=== PATIENT | male | born 1945 | race African-American/Black ===

== ENCOUNTER 2022-06-18 17:19 | Observation (INO) | payer MEDICARE ==
[~2022-06-18] VITALS: Ht 170.2 cm; Wt 95.2 kg
[2022-06-18 18:02] LABS: COLLECTION METHOD CLEAN CATCH
[2022-06-18 18:10] LABS: URINE APPEARANCE Clear (CLEAR/HAZY); URINE BLOOD Negative (NEGATIVE); URINE COLOR Yellow (YELLOW); URINE GLUCOSE Negative (NEGATIVE); URINE KETONE Negative (NEGATIVE); URINE NITRATE Negative (NEGATIVE); URINE PROTEIN(semi-quant) Negative (NEGATIVE); URINE UROBILINOGEN 0.2 E.U/dL (0.2-1.0)
[2022-06-18 18:12] LABS: SQUAMOUS EPITHELIAL None Seen /hpf (0-10); URINE BACTERIA None Seen /hpf (NONE SEEN); URINE RBC 0-2 /hpf (0-2)
[2022-06-18 18:19] LABS: BASO % 0.2 % (0.0-2.0); EOS # 0.1 K/mm3 (0.0-0.7); EOS % 1.1 % (0.0-4.0); GRAN # 2.9 K/mm3 (1.4-6.5); GRAN % 53.9 % (42.2-75.2); HEMATOCRIT 41.4 % (42.0-52.0); HEMOGLOBIN 13.9 g/dl (13.5-18.0); LYMPH # 1.4 K/mm3 (1.2-3.4); LYMPH % 26.7 % (20.0-51.0); MEAN CELL VOLUME 90 fl (80.0-100.0); MEAN CORPUSCULAR HEMOGLOBIN 30 pg (27-31); MEAN CORPUSCULAR HGB CONC 34 g/dl (33.0-37.0); MEAN PLATELET VOLUME 10.9 fl (7.4-10.4); MONO # 0.9 K/mm3 (0.1-0.6); MONO % 17.2 % (1.7-9.3); PLATELET COUNT 127 K/mm3 (130-400); RED BLOOD COUNT 4.58 M/mm3 (4.20-5.60); REDCELL DISTRIBUTION WIDTH-CV 14.3 % (11.5-14.5)
[2022-06-18 19:33] LABS: ALBUMIN 3.3 gm/dL (3.4-4.8); BILIRUBIN,TOTAL 0.7 mg/dL (0.2-1.2); CALCIUM 8.8 mg/dL (8.4-10.2); CREATININE, serum 1.89 mg/dL (0.72-1.25); POTASSIUM 4.9 mmol/L (3.5-4.5); TOTAL PROTEIN 6.7 gm/dL (6.2-8.1)
[2022-06-18 19:42] LABS: TROPONIN-I 0.087 ng/mL (0.00-0.033)
[2022-06-18] MEDS ORDERED: COZAAR100 MG PO (21:01)
[2022-06-18] MEDS ORDERED: MEVACOR 20M20 MG/TAB PO (21:02)
[2022-06-18] MEDS ORDERED: LOPRESSOR100 MG PO (21:03)
[2022-06-18] MEDS ORDERED: ACTOS30 MG PO (21:04)
[2022-06-18] MEDS ORDERED: CARDURA 8MG TAB8 MG PO (21:04)
[2022-06-18] MEDS ORDERED: NORVASC 10MG10 MG PO (21:04)
[2022-06-18] MEDS ORDERED: ASPIRIN 32325 MG/TAB PO (21:05)
[2022-06-18 22:34] VITALS: BP 127/66; PULSE 64; TEMP 98.5
--- NOTE | 2022-06-19 01:27 | NUR ---
PATIENT ARRIVED TO 310 AT 2200. PATIENT ALERT AND ORIENTATED X4. ORIENTATED TO MEDICAL FLOOR. DENIES NEEDS. CALL LIGHT IN REACH.
[2022-06-19 04:06] VITALS: BP 116/70; PULSE 58; TEMP 98.3
--- NOTE | 2022-06-19 05:53 | NUR ---
PATIENT HAD UNEVENTFUL NIGHT. RESTING IN BED THIS AM. CALL LIGHT IN REACH.
--- NOTE | 2022-06-19 06:50 | NUR ---
resting in bed, bedside shift report received from ANSHU Benjamin
--- NOTE | 2022-06-19 06:58 | NUR ---
Report given to ANSHU Headley
[2022-06-19 07:07] VITALS: BP 121/74; PULSE 63; TEMP 98.2
[2022-06-19 07:12] LABS: CREATININE, serum 1.69 mg/dL (0.72-1.25); MAGNESIUM 2.2 mg/dL (1.6-2.6)
[2022-06-19 07:19] LABS: BASO % 0.2 % (0.0-2.0); EOS # 0.1 K/mm3 (0.0-0.7); GRAN % 43.4 % (42.2-75.2); HEMATOCRIT 45.1 % (42.0-52.0); HEMOGLOBIN 14.9 g/dl (13.5-18.0); LYMPH # 1.8 K/mm3 (1.2-3.4); LYMPH % 39.7 % (20.0-51.0); MEAN CELL VOLUME 91 fl (80.0-100.0); MEAN CORPUSCULAR HEMOGLOBIN 30 pg (27-31); MEAN CORPUSCULAR HGB CONC 33 g/dl (33.0-37.0); MEAN PLATELET VOLUME 11.4 fl (7.4-10.4); MONO # 0.7 K/mm3 (0.1-0.6); MONO % 14.3 % (1.7-9.3); PLATELET COUNT 127 K/mm3 (130-400); RED BLOOD COUNT 4.95 M/mm3 (4.20-5.60); REDCELL DISTRIBUTION WIDTH-CV 14.5 % (11.5-14.5)
--- NOTE | 2022-06-19 08:00 | NUR ---
awake resting in bed, full assessment completed, see interventions for further info, denies pain or needs
--- NOTE | 2022-06-19 09:06 | NUR ---
Dr Flores and care team in to see patient
--- NOTE | 2022-06-19 09:28 | NUR ---
offered breakfast and he refused, stating he isn't hungry and is hoping to go home
--- NOTE | 2022-06-19 10:06 | NUR ---
Initial visit; Loss Prevention And Safety Manager introduced herself and helped patient get settled in bed by fixing his pillows and lowering the back of the bed. Patient thanked Loss Prevention And Safety Manager and asked that she contact his nurse to take him to the restroom Loss Prevention And Safety Manager offered God's blessings and retrieved a nurse to help Mr. Novak.
--- NOTE | 2022-06-19 10:30 | NUR ---
in bed and appears to be dozing, eyes closed, resp quiet and easy
--- NOTE | 2022-06-19 11:31 | NUR ---
family at bedside, asking about his blood sugar and if he had breakfast, explained to them he was offered breakfast and even just some toast and he refused, they were not surprised by this, talked with patient about importance of eating and nutritious meals, will place order for dietary consult,, family in agreement with this
[2022-06-19 11:48] VITALS: BP 129/66; PULSE 62; TEMP 97.6
--- NOTE | 2022-06-19 12:32 | NUR ---
Dr Lozano in to see patient, will plan lexiscan tomorrow
--- NOTE | 2022-06-19 12:56 | NUR ---
Portal Administrator met with patient to discuss discharge planning. Patient lives in [place] with his , Safia and sees Dr. Sánchez for primary care. Patient obtains medications from [facility] and does not use any DME. Patient is independent with ADLS and stated he needs to get home to cut the grass. Patient does not have Advance Directives. Patient plans to return home at time of discharge. Discharge Plan: Home
--- NOTE | 2022-06-19 13:22 | NUR ---
eating lunch even though he states he isn't hungry, discussed that he needs to try and eat
--- NOTE | 2022-06-19 15:20 | NUR ---
appears to be sleeping, in bed with eyes closed, resp q uiet and easy
[2022-06-19 15:35] VITALS: BP 115/70; PULSE 67; TEMP 98.9
--- NOTE | 2022-06-19 18:46 | NUR ---
bedside shift report given to ANSHU Pacheco
[2022-06-19 20:26] VITALS: BP 131/74; PULSE 69; TEMP 98.2
[2022-06-19 23:57] VITALS: BP 115/71; PULSE 59; TEMP 98.8
[2022-06-20] VITALS (359 sets, daily range): BP systolic 94–135; BP diastolic 67–78; PULSE 56–75; TEMP 97.6–99.3; O2SAT 74–100
[2022-06-20 06:33] LABS: BASO % 0.3 % (0.0-2.0); EOS # 0.1 K/mm3 (0.0-0.7); EOS % 3.4 % (0.0-4.0); GRAN # 1.5 K/mm3 (1.4-6.5); GRAN % 37.3 % (42.2-75.2); HEMATOCRIT 42.8 % (42.0-52.0); HEMOGLOBIN 13.6 g/dl (13.5-18.0); LYMPH # 1.7 K/mm3 (1.2-3.4); LYMPH % 43.3 % (20.0-51.0); MEAN CELL VOLUME 94 fl (80.0-100.0); MEAN CORPUSCULAR HEMOGLOBIN 30 pg (27-31); MEAN CORPUSCULAR HGB CONC 32 g/dl (33.0-37.0); MEAN PLATELET VOLUME 10.9 fl (7.4-10.4); MONO # 0.6 K/mm3 (0.1-0.6); MONO % 14.9 % (1.7-9.3); PLATELET COUNT 118 K/mm3 (130-400); RED BLOOD COUNT 4.55 M/mm3 (4.20-5.60); REDCELL DISTRIBUTION WIDTH-CV 14.6 % (11.5-14.5)
[2022-06-20 06:56] LABS: CALCIUM 8.5 mg/dL (8.4-10.2); CREATININE, serum 1.47 mg/dL (0.72-1.25); PHOSPHOROUS 2.8 mg/dL (2.3-4.7)
--- NOTE | 2022-06-20 11:07 | NUR ---
Patient is resting in bed, alert and oriented x 4, VSS, Telemetry in place, NSR. Getting D5/NS AT 100ML/HR. Waiting for lexiscan. Being NPO from midnight. Assessment completed. Call light within reach.
[2022-06-20] MEDS ORDERED: LIPITOR 40MG TA40 MG PO (14:08)
--- NOTE | 2022-06-20 16:16 | NUR ---
Patient was taken by bed for cath procedure.
--- NOTE | 2022-06-20 16:30 | NUR ---
See merge for all medication, assessment, intervention, vital signs times.
--- NOTE | 2022-06-20 17:18 | NUR ---
Reported by charge nurse that pt will be transfered to ICU. Report given to WATERPROOFER.
--- NOTE | 2022-06-20 18:00 | NUR ---
Arrived from the computer lab para professional; attached to all monitors. Alert and oriented and in no distress upon arrival. Right radial site assessed; soft with no hematoma formation.
--- NOTE | 2022-06-20 21:11 | NUR ---
ASSESSMENT COMPLETE. PATIENT DENIES NEEDS. CALL LIGHT IN REACH.
[2022-06-21] VITALS (600 sets, daily range): BP systolic 117–132; BP diastolic 70–79; PULSE 57–72; TEMP 98.5–99.1; O2SAT 89–100
[2022-06-21 05:34] LABS: BASO % 0.2 % (0.0-2.0); EOS # 0.1 K/mm3 (0.0-0.7); EOS % 3.2 % (0.0-4.0); GRAN # 1.9 K/mm3 (1.4-6.5); HEMATOCRIT 43.1 % (42.0-52.0); HEMOGLOBIN 14.2 g/dl (13.5-18.0); LYMPH # 1.8 K/mm3 (1.2-3.4); MEAN CELL VOLUME 90 fl (80.0-100.0); MEAN CORPUSCULAR HEMOGLOBIN 30 pg (27-31); MEAN CORPUSCULAR HGB CONC 33 g/dl (33.0-37.0); MEAN PLATELET VOLUME 10.6 fl (7.4-10.4); MONO # 0.5 K/mm3 (0.1-0.6); MONO % 12.1 % (1.7-9.3); PLATELET COUNT 131 K/mm3 (130-400); RED BLOOD COUNT 4.81 M/mm3 (4.20-5.60); REDCELL DISTRIBUTION WIDTH-CV 14.2 % (11.5-14.5)
--- NOTE | 2022-06-21 05:39 | NUR ---
PATIENT HAD AN UNEVENTFUL NIGHT. RESTING IN BED THIS AM. CALL LIGHT IN REACH.
[2022-06-21 05:49] LABS: ALBUMIN 3.3 gm/dL (3.4-4.8); CALCIUM 8.9 mg/dL (8.4-10.2); CREATININE, serum 1.44 mg/dL (0.72-1.25); MAGNESIUM 1.8 mg/dL (1.6-2.6); POTASSIUM 4.6 mmol/L (3.5-4.5)
--- NOTE | 2022-06-21 07:18 | NUR ---
Report given to ANSHU Kaufman
[2022-06-21] MEDS ORDERED: BRILINTA90 MG PO (10:04)
--- NOTE | 2022-06-21 10:04 | NUR ---
Initial visit; Patient and his daughter thanked Paint Dipper for looking in on Ray and offering God's blessings for a rapid and thorough healing. Patient appears to be doing well, Paint Dipper left him smiling.
[2022-06-21] MEDS ORDERED: ASPIRIN 81M81 MG/TA2 PO (10:05)
[2022-06-21] MEDS ORDERED: IMDUR 30MG30 MG/TAB PO (10:05)
[2022-06-21] MEDS ORDERED: NITROSTAT0.4 MG/TAB SL (10:06)
--- NOTE | 2022-06-21 11:40 | NUR ---
Reviewed discharge instructions for radial heart catheterization. Cleaning site with mild soap and water, pat dry. Discussed monitoring for redness, hot to touch, inflammation, or temperature >100.4. Discussed when to contact the physician for signs of symptoms of complications or CO. Also reviewed risk factors for heart disease. Covered applicable modifiable risk factors including the following: tobacco cessation, HTN, hyperlipidemia, diabetes, overweight/obesity, sedentary lifestyle, and stress/depression. Patient verbalized understanding. Referral sent to [facility] with patient s permission. 10 MINUTES OF FACE TO FACE EDUCATION, 5 MINUTES OF CHART REVIEW SPENT ON PATIENT.
--- NOTE | 2022-06-21 12:16 | NUR ---
PT DISCAHRGED AT THIS TIME. DISCHARGE INSTRUCTIONS DISCUSSED WITH PT AND DAUGHTER AT BEDSIDE. ALL QUESTIONS ANSWERED. CARDIAC CHILD PROTECTION SPECIALIST IN TO EVAL AND DISCUSS WITH PT SCHEDULING. ALL QUESTIONS ANSWERED. IV REMOVED WITH CATH TIP INTACT. PT ESCORTED OUT VIA WC TO POV W/ DAUGHTER. NO FURTHER NEEDS AT THIS TIME.
--- NOTE | 2022-06-21 13:44 | NUR ---
health worker met with patient and his daughter and provided information on obtaining hospital bed. Worker advised that insurance would most likely not cover hospital at home as patient is ambulatory. Worker provided private pay costs for daughter. They may consider this as an option. Daughter states that patient will not be climbing stairs in his home and they thought a hospital bed in living room would be helpful. Patient States that his primary care provider is Dr Sánchez and is excited that he is discharging home today.
== END 2022-06-21 12:18 | disposition home or self-care (01) ==
LOC: COL.ER 17:19 → MEDICAL 20:29 → ICU 06-20 18:39
PROVIDERS: Internal Medicine; Nurse Practitioner Primary Care; Student in an Organized Health Care Education/Training Program; ADMIT Student in an Organized Health Care Education/Training Program
DX: E11.649 Type 2 diabetes mellitus with hypoglycemia without coma (principal); R55 Syncope and collapse; I21.4 Non-ST elevation (NSTEMI) myocardial infarction; I25.10 Atherosclerotic heart disease of native coronary artery without angina pectoris; I25.84 Coronary atherosclerosis due to calcified coronary lesion; I12.9 Hypertensive chronic kidney disease with stage 1 through stage 4 chronic kidney disease, or unspecified chronic kidney disease; E11.22 Type 2 diabetes mellitus with diabetic chronic kidney disease; N18.9 Chronic kidney disease, unspecified; N17.9 Acute kidney failure, unspecified; E78.5 Hyperlipidemia, unspecified; D69.6 Thrombocytopenia, unspecified; E87.5 Hyperkalemia; E87.1 Hypo-osmolality and hyponatremia; W19.XXXA Unspecified fall, initial encounter; Y93.9 Activity, unspecified; Y92.9 Unspecified place or not applicable; Z79.82 Long term (current) use of aspirin; Z79.899 Other long term (current) drug therapy; Z79.84 Long term (current) use of oral hypoglycemic drugs
CPT/HCPCS: A9500; C1725; C1769; C1874; C1887; C9600; G0378; J0583; J1644; J2250; J2785; J3010; J7042; Q9967